=== PATIENT | female | born 1955 | race Caucasian/White ===

== ENCOUNTER 2017-02-14 09:28 | Emergency (ER) | payer OTHER ==
[~2017-02-14] VITALS: Ht 175.3 cm; Wt 93.0 kg
[2017-02-14 09:34] VITALS: TEMP 36.6; Ht 175.3 cm; Wt 93.0 kg
[2017-02-14] MEDS ORDERED: ACETAMINOPHEN 325 MG TAB PO STA (09:53)
--- NOTE | 2017-02-14 10:32 | DIAGNOSTIC IMAGING REPORT ---
LEFT KNEE 1 OR 2 VIEWS ROUTINE CLINICAL HISTORY: Left knee pain following injury. Evaluate for fracture. COMPARISON: None FINDINGS: Alignment of the left knee is anatomic. A small left knee joint effusion is present. No acute fracture is identified. There is suspected mild soft tissue swelling anterior to the patellar tendon. IMPRESSION: 1. No acute fracture. 2. Small left knee joint effusion. 3. Suspected mild soft tissue swelling anterior to the patellar tendon. Electronically signed by: Anton Henley M.D. 02/14/2017 10:31 AM Dictated Date/Time: 02/14/2017 10:29 AM
[2017-02-14] MEDS ORDERED: NAPR1TAB9 PO (10:47)
[2017-02-14 11:24] VITALS: BP 132/89; PULSE 62; O2SAT 98
--- NOTE | 2017-02-14 14:30 | EMERGENCY ROOM VISIT NOTE ---
History Report prepared by Lulu: Nikki Stevens Under the Supervision of: Dr. Dennis Spaulding M.D. 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 The patient was walking down a hill when she twisted her knee. She believes that she twisted it outwards. She heard something snap and fell to the ground. She reports pain on both sides of her knee and behind the knee. She denies any head injury or any other injury. She is unable to bear weight on her left knee. She is having some left hip pain which she attributes to favoring one leg. She denies falling onto her hip. She denies any ankle pain. She denies any history of hypertension. Source of History: patient Onset: EXTRACT PULLER Position: knee (left) Quality: other (injury, pain) Timing: other (persistent) Note: Pt denies ankle pain, hip injury, head injury. Review of Systems See HPI for pertinent positives & negatives. A total of 6 systems reviewed and were otherwise negative. Past Medical & Surgical Surgical Problems: (1) S/P right knee arthroscopy Family History Diabetes mellitus Heart disease Hypertension Seizures Social History Smoking Status: Never Smoker Alcohol Use: occasionally Marital Status: Housing Status: lives with significant other Current/Historical Medications Scheduled PRN Naproxen (Aleve), 220 MG PO UD PRN for Pain Allergies Coded Allergies: Bacitracin (Unverified Adverse Reaction, Unknown, RASH, 02/14/17) Celecoxib (Unverified Adverse Reaction, Unknown, HEADACHE, 02/14/17) Neomycin (Unverified Adverse Reaction, Unknown, RASH, 02/14/17) Polymyxin B (Unverified Adverse Reaction, Unknown, RASH, 02/14/17) Pramoxine (Unverified Adverse Reaction, Unknown, RASH, 02/14/17) Physical Exam Vital Signs Date Time Temp Pulse Resp B/P (MAP) Pulse Ox O2 Delivery O2 Flow Rate FiO2 02/14/17 11:24 62 20 132/89 98 02/14/17 09:34 36.6 85 18 158/91 99 Room Air Physical Exam Constitutional: Vital signs reviewed. Musculoskeletal: No peripheral edema. No left hip tenderness, full ROM. Mild tenderness to the distal lateral left femur above the joint line, full ROM of the left knee, no joint laxity, negative anterior and posterior drawer's sign, negative Shona's test, normal distal pulses, no tenderness distal to the left knee. Integumentary: No cyanosis. Neurological: The patient is awake and alert. No focal deficits. Psychiatric: Normal affect. Medical Decision & Procedures ER Provider Diagnostic Interpretation: X-ray results as stated below per interpretation by me and the radiologist: LEFT KNEE 1 OR 2 VIEWS ROUTINE CLINICAL HISTORY: Left knee pain following injury. Evaluate for fracture. COMPARISON: None FINDINGS: Alignment of the left knee is anatomic. A small left knee joint effusion is present. No acute fracture is identified. There is suspected mild soft tissue swelling anterior to the patellar tendon. IMPRESSION: 1. No acute fracture. 2. Small left knee joint effusion. 3. Suspected mild soft tissue swelling anterior to the patellar tendon. Electronically signed by: Anton Henley M.D. 02/14/2017 10:31 AM Dictated Date/Time: 02/14/2017 10:29 AM Medications Administered Medications (Trade) Dose Ordered Sig/Zackary Route Start Time Stop Time Status Last Admin Dose Admin Acetaminophen (Tylenol Tab) 650 mg NOW STAT PO 02/14/17 09:53 02/14/17 09:55 DC 02/14/17 10:14 650 MG ED Course 0949: The patient was evaluated in room B2. A complete history and physical exam was performed. 0953: Acetaminophen 650 mg PO. 1042: Upon reevaluation, the patient appeared to have improvement of her symptoms. I discussed tonight's findings with her. She verbalized agreement of the treatment plan. She was discharged home. Medical Decision This is a 61-year-old female who presents with knee pain. Differential diagnosis includes strain, fracture, meniscal tear. I did perform a limited focused review of portions of the patient's old chart on the electronic medical record. The patient has had no prior visits to this hospital. I did evaluate the patient as noted above. The patient is presenting with left knee pain after twisting it prior to arrival. She has no joint laxity. She has no tenderness proximally or distally from the knee. I did order and personally review the patient's knee x-rays as described above. She has a small effusion. There is no evidence of fracture. I did discuss the test results with the patient. I did treat patient with Tylenol. She is placed in a knee immobilizer and advised follow closely with her doctor. She has her own crutches with her. She was discharged in good condition. Medication Reconcilliation Current Medication List: was personally reviewed by me Blood Pressure Screening Patient's blood pressure: Elevated blood pressure Blood pressure disposition: Referred to PCP Impression Primary Impression: Internal derangement of left knee Additional Impression: Knee effusion Scribe Attestation The scribe's documentation has been prepared under my direct and personally reviewed by me in its entirety. I confirm that the note above accurately reflects all work, treatment, procedures, and medical decision making performed by me. Departure Information Dispostion Home / Self-Care Referrals No Doctor, Assigned (PCP) Forms HOME CARE DOCUMENTATION FORM, IMPORTANT VISIT INFORMATION Patient Instructions ED Knee Pain O, My [facility] Additional Instructions You have been examined and treated today on an emergency basis only. This is not a substitute for, or an effort to provide, complete comprehensive medical care. It is impossible to recognize and treat all injuries or illnesses in a single emergency department visit. It is therefore important that you follow up closely with your physician. Call as soon as possible for an appointment. Return for worsening symptoms or if you develop fever, redness or significant swelling to the knee or any other concerning symptoms. Problem Qualifiers Additional Impression: Knee effusion Laterality: left Qualified Codes: M25.462 - Effusion, left knee
== END 2017-02-14 11:26 | disposition home or self-care (01) ==
LOC: C.EDB 09:30
DX: M23.92 Unspecified internal derangement of left knee (principal); M25.462 Effusion, left knee; Z83.3 Family history of diabetes mellitus; Z82.49 Family history of ischemic heart disease and other diseases of the circulatory system; Z82.0 Family history of epilepsy and other diseases of the nervous system

== ENCOUNTER → 2017-02-24 | Outpatient (CLI) | payer OTHER ==
[~2017-02-24] MED LIST: NAPR1TAB9 PO
--- NOTE | 2017-02-24 15:32 | DIAGNOSTIC IMAGING REPORT ---
MRI OF THE LEFT KNEE WITHOUT CONTRAST CLINICAL HISTORY: Left knee pain following fall. COMPARISON STUDY: Left knee radiographs February 14, 2017. TECHNIQUE: Utilizing a 1.5 Remedios magnet and dedicated coil, multiplanar, multiecho imaging of the left knee was performed without intravenous or intraarticular contrast. FINDINGS: Alignment of left knee is anatomic. Extensor mechanism is intact. There is a small left knee joint effusion. There is no fracture or suspicious marrow replacement. The cruciate and collateral ligaments are intact. There is a high grade complex tear of the posterior root of the medial meniscus. Tear extends into the posterior horn of the medial meniscus which is partially excluded. Intrasubstance signal is noted within the lateral meniscus without MRI evidence for a lateral meniscal tear. There is focal moderate chondrosis with subchondral signal abnormality of the median ridge of the patella. There is moderate chondrosis within the medial compartment with cartilage thinning. There is mild chondrosis within the lateral compartment. IMPRESSION: 1. High-grade complex tear of the posterior root of the medial meniscus extending into the posterior horn. Partially extruded medial meniscus. 2. Small left knee joint effusion. 3. No fracture. 4. Intact cruciate and collateral ligaments. 5. Moderate chondrosis within the medial compartment and mild chondrosis within the lateral and patellofemoral compartments. Electronically signed by: Anton Henley M.D. 02/24/2017 3:30 PM Dictated Date/Time: 02/24/2017 3:25 PM
== END | disposition home or self-care (01) ==
LOC: C.MRI 13:39
PROVIDERS: ATTEND Family Medicine
DX: S83.242A Other tear of medial meniscus, current injury, left knee, initial encounter (principal); X58.XXXA Exposure to other specified factors, initial encounter; M25.462 Effusion, left knee; M22.2X2 Patellofemoral disorders, left knee

== ENCOUNTER → 2018-01-25 | Day surgery (SDC) | payer OTHER ==
[~2018-01-25] VITALS: Ht 175.3 cm; Wt 90.9 kg
[~2018-01-25] MED LIST changes: +EPP3/2 IM; +LIDOCAINE HCL 2% 2 ML VIAL (20MG/ML) ONE; +PREMARIN CREAM PV; +PROPOFOL IV EMULSION 10 MG/ML 20 ML VIAL ONE; +SODIUM CHLORIDE 0.9% 500ML 500 ML IV ONE; +VITD PO
[2018-01-25 10:06] VITALS: Ht 175.3 cm; Wt 90.9 kg
--- NOTE | 2018-01-25 10:29 | Endo History and Physical ---
History & Physical Date of Service: Jan 25, 2018. Chief Complaint: SCREENING Referring Physician: DR. GLYNN History of Present Illness 62 yo CF who presents for screening colonoscopy. Past Surgical History Hx Cardiac Surgery: No Hx Internal Defibrillator: No Hx Pacemaker: No Hx Abdominal Surgery: No Hx of Implantable Prosthesis: No Hx Post-Op Nausea and Vomiting: Yes (PONV) Hx Cancer Surgery: No Hx Thoracic Surgery: No Hx Orthopedic: Yes (R KNEE SCOPE) Hx Urinary Tract Surgery: No Family History Polyp Social History Smoking Status: Never Smoker Hx Substance Use: No Hx Alcohol Use: Yes (OCC SOCIAL) Allergies Coded Allergies: Amoxicillin (Verified Allergy, Unknown, SEVERE DIARRHEA,BLEEDING, 01/25/18) BEE STING (Verified Allergy, Unknown, ANAPHYLAXIS, 01/25/18) Sulfamethoxazole w/Trimethoprim (Verified Allergy, Unknown, SEVERE BLEEDING,DIARRHEA, 01/25/18) Bacitracin (Unverified Adverse Reaction, Unknown, RASH, 01/25/18) Celecoxib (Unverified Adverse Reaction, Unknown, HEADACHE, 01/25/18) Neomycin (Unverified Adverse Reaction, Unknown, RASH, 01/25/18) Polymyxin B (Unverified Adverse Reaction, Unknown, RASH, 01/25/18) Pramoxine (Unverified Adverse Reaction, Unknown, RASH, 01/25/18) Current Medications Reported Home Medications Medications Dose Route/Sig Max Daily Dose Days Date Category [Vitd] 5,000 Mcg PO 01/25/18 Reported [Premarin Cream] 1 Dose PV PRN 01/18/18 Reported Epipen (Epinephrine) 0.3 Mg/0.3 Ml Inj 0.3 Mg IM UD 01/18/18 Reported Aleve (Naproxen) 220 Mg Tab 220 Mg PO UD PRN 02/14/17 Reported Vital Signs Weight (Kilograms): 90.91 Height (Feet): 5 Height (Inches): 9 Date Time Temp Pulse Resp B/P (MAP) Pulse Ox O2 Delivery O2 Flow Rate FiO2 01/25/18 10:15 36.5 89 20 147/88 (107) 99 Room Air Physical Exam General Appearance: WD/WN, no apparent distress Respiratory/Chest: Auscultation: breath sounds normal Cardiovascular: Heart Auscultation: RRR Abdomen: Bowel Sounds: normal Inspection & Palpation: soft, non-distended, no tenderness, guarding & rebound Assessment and Plan Assessment: 62 yo CF who presents for screening colonoscopy. Plan: Proceed with colonoscopy.
--- NOTE | 2018-01-25 11:05 | GI REPORT ---
Patient Name: Marilni Byrd Procedure Date: 01/25/2018 10:09 AM Date of : 1955 Admit Type: Outpatient Age: 62 Gender: Female Attending MD: Kael Hood DO Procedure: Colonoscopy Providers: Kael Hood DO Referring MD: Sarbjit Sanabria Indications: Screening for colorectal malignant neoplasm Medicines: Monitored Anesthesia Care Complications: No immediate complications. Estimated Blood Loss: Estimated blood loss: none. Procedure: Pre-Anesthesia Assessment: - Prior to the procedure, a History and Physical was performed, and patient medications and allergies were reviewed. The patient's tolerance of previous anesthesia was also reviewed. The risks and benefits of the procedure and the sedation options and risks were discussed with the patient. All questions were answered, and informed consent was obtained. Prior Anticoagulants: The patient has taken no previous anticoagulant or antiplatelet agents. ASA Grade Assessment: III - A patient with severe systemic disease. After reviewing the risks and benefits, the patient was deemed in satisfactory condition to undergo the procedure. After I obtained informed consent, the scope was passed under direct vision. Throughout the procedure, the patient's blood pressure, pulse, and oxygen saturations were monitored continuously. The scope was introduced through the anus and advanced to the terminal ileum. The colonoscopy was performed without difficulty. The patient tolerated the procedure well. The quality of the bowel preparation was good. The terminal ileum, ileocecal valve, appendiceal orifice, and rectum were photographed. Findings: The perianal and digital rectal examinations were normal. A 6 mm polyp was found in the cecum. The polyp was sessile. The polyp was removed with a hot snare. Resection and retrieval were complete. A 5 mm polyp was found in the cecum. The polyp was sessile. The polyp was removed with a piecemeal technique using a hot snare. Resection and retrieval were complete. Non-bleeding internal hemorrhoids were found during retroflexion. The hemorrhoids were small. Impression: - One 6 mm polyp in the cecum, removed with a hot snare. Resected and retrieved. - One 5 mm polyp in the cecum, removed piecemeal using a hot snare. Resected and retrieved. - Non-bleeding internal hemorrhoids. Recommendation: - Resume previous diet. - Continue present medications. - Repeat colonoscopy for surveillance based on pathology results. - Return to primary care physician as previously scheduled. Kael Aburto Case, DO 01/25/2018 11:04:55 AM This report has been signed electronically. Note Initiated On: 01/25/2018 10:09 AM Number of Addenda: 0 I attest to the content of the Intraoperative Record and orders documented therein, exceptions below {[id number]}
--- NOTE | 2018-01-25 11:07 | Discharge Instructions ---
Endoscopy Patient Instructions Date / Procedure(s) Performed Jan 25, 2018. Colonoscopy Allergy Information Coded Allergies: Amoxicillin (Verified Allergy, Unknown, SEVERE DIARRHEA,BLEEDING, 01/25/18) BEE STING (Verified Allergy, Unknown, ANAPHYLAXIS, 01/25/18) Sulfamethoxazole w/Trimethoprim (Verified Allergy, Unknown, SEVERE BLEEDING,DIARRHEA, 01/25/18) Bacitracin (Unverified Adverse Reaction, Unknown, RASH, 01/25/18) Celecoxib (Unverified Adverse Reaction, Unknown, HEADACHE, 01/25/18) Neomycin (Unverified Adverse Reaction, Unknown, RASH, 01/25/18) Polymyxin B (Unverified Adverse Reaction, Unknown, RASH, 01/25/18) Pramoxine (Unverified Adverse Reaction, Unknown, RASH, 01/25/18) Discharge Date / Findings Jan 25, 2018. Colon polyps Internal hemorrhoids Medication Instructions OK to resume all medications today as prescribed Reported Home Medications Medications Dose Route/Sig Max Daily Dose Days Date Category [Vitd] 5,000 Mcg PO 01/25/18 Reported [Premarin Cream] 1 Dose PV PRN 01/18/18 Reported Epipen (Epinephrine) 0.3 Mg/0.3 Ml Inj 0.3 Mg IM UD 01/18/18 Reported Aleve (Naproxen) 220 Mg Tab 220 Mg PO UD PRN 02/14/17 Reported Provider Instructions Activity Restrictions - No exercising or heavy lifting for 24 hours. - Do not drink alcohol the day of the procedure. - Do not drive a car or operate machinery until the day after the procedure. - Do not make any important decisions or sign important papers in 24 hours after the procedure. Following Day: - Return to full activity which may include returning to work/school. Diet Start your diet with liquids and light foods (jello, soup, juice, toast). Then eat your usual diet if not nauseated. Treatment For Common After Affects For mild abdominal pain, bloating, or excessive gas: - Rest - Eat lightly - Lie on right side Follow-Up Information Follow-up with DR. GLYNN as scheduled Anesthesia Information What You Should Know You have had a procedure that required some medicine to reduce anxiety and discomfort. This treatment is called moderate sedation. After receiving the treatment, you may be sleepy, but you will be able to breathe on your own. The effects of the treatment may last for several hours. Follow these instructions along with Activity/Diet recommendations noted above: * Do NOT do anything where dizziness or clumsiness would be dangerous. * Rest quietly at home today, then you can be up and about tomorrow. * Have a responsible person stay with you the rest of today. * You may have had an I.V. today. If so, you may take the dressing off later today. Recommendations Call your doctor if: * Trouble breathing * Continuous vomiting for more than 24 hours * Temperature above 101 degrees * Severe abdominal pain or bloating * Pain not relieved by pain medicine ordered * There is increased drainage or redness from any incision * A large amount of rectal bleeding greater than 2-3 tablespoons. (If you had a polyp/s removed or have hemorrhoids, a small amount of blood - from the rectum is to be expected.) * You have any unanswered questions or concerns. IN THE EVENT OF A SERIOUS EMERGENCY, GO TO THE NEAREST EMERGENCY ROOM Your discharge instructions were prepared by provider Kael Hood. Patient Instructions Signature Page Marilin Byrd Patient (or Guardian) Signature/Date: I have read and understand the instructions given to me by my caregivers. Caregiver/RN/Doctor Signature/Date: The above-named patient and/or guardian has received patient instructions on this date. + Original Patient Signature Page (only) stays with chart. Please make copy for patient.
[2018-01-25 11:35] VITALS: BP 144/82; PULSE 79; O2SAT 96
--- NOTE | 2018-01-25 14:22 | Anesthesiology Progress Note ---
Anesthesia Post Op Note Date & Time Jan 25, 2018 at 14:22 Vital Signs Pain Intensity: 0 Vital Signs Past 12 Hours Date Time Temp Pulse Resp B/P (MAP) Pulse Ox O2 Delivery O2 Flow Rate FiO2 01/25/18 11:35 79 20 144/82 (102) 96 Room Air 01/25/18 11:20 78 20 136/85 (102) 96 Room Air 01/25/18 11:05 80 18 117/70 (86) 97 Room Air 01/25/18 10:15 36.5 89 20 147/88 (107) 99 Room Air Notes Mental Status: alert / awake / arousable, participated in evaluation Pt Amnestic to Procedure: Yes Nausea / Vomiting: adequately controlled Pain: adequately controlled Airway Patency, RR, SpO2: stable & adequate BP & HR: stable & adequate Hydration State: stable & adequate Anesthetic Complications: no major complications apparent
== END | disposition home or self-care (01) ==
LOC: C.GI 09:34
PROVIDERS: ATTEND Internal Medicine
DX: Z12.11 Encounter for screening for malignant neoplasm of colon (principal); D12.0 Benign neoplasm of cecum; K64.8 Other hemorrhoids; G47.33 Obstructive sleep apnea (adult) (pediatric); M19.90 Unspecified osteoarthritis, unspecified site; Z83.71 Family history of colonic polyps; Z88.1 Allergy status to other antibiotic agents; Z88.8 Allergy status to other drugs, medicaments and biological substances; Z91.030 Bee allergy status